=== PATIENT | male | born 1975 | race Caucasian/White ===

== ENCOUNTER → 2016-06-16 | Outpatient (CLI) | payer BC ==
[2016-06-16 10:44] LABS: ALT/SGPT 201 U/L (12-78); AST/SGOT 74 U/L (15-37); BLOOD UREA NITROGEN 18 mg/dl (7-18); BUN/CREATININE RATIO 18.1 (10-20); CALCIUM 8.3 mg/dl (8.5-10.1); CARBON DIOXIDE 30 mmol/L (21-32); CHLORIDE 105 mmol/L (98-107); GLUCOSE 105 mg/dl (70-99); POTASSIUM 3.3 mmol/L (3.5-5.1); SODIUM 141 mmol/L (136-145)
[2016-06-16 10:46] LABS: ALKALINE PHOSPHATASE 70 U/L (45-117)
[2016-06-19 10:19] LABS: AFP TUMOR MARKER SERUM 1.7 NG/ML (<6.1)
== END | disposition home or self-care (01) ==
LOC: C.LAB 16:43
PROVIDERS: ATTEND Urology
DX: N50.819 Testicular pain, unspecified (principal); N50.9 Disorder of male genital organs, unspecified; D49.59 Neoplasm of unspecified behavior of other genitourinary organ; K65.1 Peritoneal abscess

== ENCOUNTER → 2016-06-23 | Outpatient (CLI) | payer BC ==
[~2016-06-23] MED LIST: OPTIRAY 320 IV PRN
--- NOTE | 2016-06-23 09:54 | DIAGNOSTIC IMAGING REPORT ---
CHEST 2 VIEWS ROUTINE CLINICAL HISTORY: N50.819 Testicular painN50.9 Testicular lumpD49.59 Testicular ne testicular nodule COMPARISON STUDY: 12/21/2015 FINDINGS: The bones soft tissues and hemidiaphragms are normal. The cardiomediastinal silhouette is normal. The lungs are clear. The pulmonary vasculature is normal. IMPRESSION: Negative chest. Electronically signed by: Cabrera Rey M.D. 06/23/2016 9:52 AM Dictated Date/Time: 06/23/2016 9:52 AM
--- NOTE | 2016-06-23 10:17 | DIAGNOSTIC IMAGING REPORT ---
CT OF THE ABDOMEN AND PELVIS WITH CONTRAST CLINICAL HISTORY: Testicular cancer. COMPARISON STUDY: CT of the abdomen and pelvis May 11, 2015. TECHNIQUE: Following IV administration of 100 mL of Optiray-320, axial images of the abdomen and pelvis were obtained from the lung bases to the proximal femurs. Images were reviewed in the axial, sagittal, and coronal planes. IV contrast was administered without complication. Oral contrast was administered. CT DOSE: 575.63 mGy.cm FINDINGS: Lung bases are clear. The liver, spleen, adrenal glands, kidneys and pancreas are normal. There is no hydronephrosis. No enlarged abdominal or pelvic lymph nodes are present. Postsurgical findings within the left groin with ill-defined soft tissue is noted. This favors scar. This is less prominent than on exam of May 11, 2015. No suspicious osseous lesions are present. A few small sclerotic lesions within the pelvis and hips are unchanged since initial exam and likely reflect bone islands. There are findings consistent with a left-sided orchiectomy. IMPRESSION: 1. No evidence of recurrent malignancy within the abdomen or pelvis. 2. Ill-defined left groin soft tissue which favors scar. Electronically signed by: Johnny Chawla M.D. 06/23/2016 10:14 AM Dictated Date/Time: 06/23/2016 10:04 AM
== END | disposition home or self-care (01) ==
LOC: C.CTS 09:34
PROVIDERS: ATTEND Urology
DX: D49.59 Neoplasm of unspecified behavior of other genitourinary organ (principal); K65.1 Peritoneal abscess; N50.819 Testicular pain, unspecified

== ENCOUNTER → 2016-07-06 | Outpatient (CLI) | payer BC | END | disposition home or self-care (01) | LOC: C.LABSPEC 17:21 | PROVIDERS: ATTEND Podiatrist Primary Podiatric Medicine | DX: B35.1 Tinea unguium (principal) ==

== ENCOUNTER → 2017-05-17 | Outpatient (CLI) | payer OTHER ==
[2017-05-17 14:57] LABS: ALT/SGPT 176 U/L (12-78); AST/SGOT 70 U/L (15-37); BLOOD UREA NITROGEN 18 mg/dl (7-18); CALCIUM 9.1 mg/dl (8.5-10.1); CARBON DIOXIDE 28 mmol/L (21-32); CREATININE 0.95 mg/dl (0.60-1.40); GLUCOSE 84 mg/dl (70-99); POTASSIUM 3.9 mmol/L (3.5-5.1); SODIUM 138 mmol/L (136-145)
[2017-05-17 14:59] LABS: ALKALINE PHOSPHATASE 74 U/L (45-117); TOTAL PROTEIN 8.3 gm/dl (6.4-8.2)
== END | disposition home or self-care (01) ==
LOC: C.LAB 12:53
PROVIDERS: ATTEND Urology
DX: N50.9 Disorder of male genital organs, unspecified (principal); C62.90 Malignant neoplasm of unspecified testis, unspecified whether descended or undescended

== ENCOUNTER → 2017-05-25 | Outpatient (CLI) | payer OTHER ==
--- NOTE | 2017-05-25 09:40 | DIAGNOSTIC IMAGING REPORT ---
CHEST 2 VIEWS ROUTINE HISTORY: C62.90 Testicular cancer COMPARISON: Chest 06/23/2016. FINDINGS: The lungs are clear. The heart is normal in size. No pleural effusions. No pneumothorax. No suspicious lytic or osseous lesions. Subtle compression deformities within the upper and lower thoracic spine remain unchanged. Therefore, these are considered to be old. IMPRESSION: No significant change compared to the prior study. No acute process. Electronically signed by: Emiliano Lam M.D. 05/25/2017 9:39 AM Dictated Date/Time: 05/25/2017 9:31 AM
[2017-05-25 10:12] LABS: BLOOD UREA NITROGEN 17 mg/dl (7-18); CREATININE 1.11 mg/dl (0.60-1.40)
== END | disposition home or self-care (01) ==
LOC: C.RAD 08:28
PROVIDERS: ATTEND Urology
DX: C62.90 Malignant neoplasm of unspecified testis, unspecified whether descended or undescended (principal)

== ENCOUNTER → 2017-05-29 | Outpatient (CLI) | payer OTHER ==
--- NOTE | 2017-05-29 14:50 | DIAGNOSTIC IMAGING REPORT ---
CT SCAN OF THE ABDOMEN AND PELVIS WITH IV CONTRAST CLINICAL HISTORY: Testicular cancer. COMPARISON STUDY: Abdominal CT dated 06/23/2016. TECHNIQUE: Following the IV administration of 94 cc of Optiray 320, CT scan of the abdomen and pelvis is performed from the lung bases to the proximal femora. Images are reviewed in the axial, sagittal, and coronal planes. IV contrast was administered without complication. A dose lowering technique was utilized adhering to the principles of ALARA. CT DOSE: 681.01 mGy.cm FINDINGS: Lung bases: The heart is normal in size and without pericardial effusion. The lung bases are clear. Liver: The contrast-enhanced liver is normal in size, contour, and attenuation. There is no intrahepatic biliary ductal dilatation. The hepatic veins and portal veins are patent. Gallbladder: Unremarkable. Spleen: Normal in size and attenuation. Pancreas: Unremarkable. Adrenal glands: Unremarkable. Kidneys: The contrast enhanced kidneys are normal in size and without hydronephrosis. The kidneys enhance symmetrically. Abdominal vasculature: The abdominal aorta is normal in course and caliber. Bowel: Moderate colonic fecal retention is noted. No bowel obstruction is identified. The appendix is well-visualized and normal. Peritoneum: There is no intraperitoneal free air or abdominal ascites. There is a small fat-containing umbilical hernia. Lymphadenopathy: There is an enlarging ovoid water attenuation structure the left periaortic space seen on image #161. This measures 2.2 x 2.0 cm. Subcentimeter retroperitoneal and iliac chain lymph nodes are identified. Pelvic viscera: The bladder, prostate, and seminal vesicles are normal as visualized. Findings are consistent with previous left inguinal herniorrhaphy. Irregular soft tissue in the left groin on image #407 measures 1.6 x 4.3 cm. This is similar in appearance to previous and favors scar tissue. Skeletal structures: No lytic or blastic lesions are seen. IMPRESSION: 1. There is an enlarging ovoid water attenuation retroperitoneal structures are in the periaortic region. This is pathologically indeterminant, but concerning as it has increased in size from prior examination. Differential considerations include a necrotic lymph node or possibly a lymphatic malformation/lymphocele. Continued attention at follow-up is recommended. 2. No additional findings are concerning for metastatic disease in the abdomen or pelvis. 3. Irregular soft tissue in the left groin is similar to previous and the appearance favors scar tissue. 4. Moderate colonic fecal retention. Electronically signed by: Jabari Elise M.D. 05/29/2017 2:49 PM Dictated Date/Time: 05/29/2017 2:34 PM
== END | disposition home or self-care (01) ==
LOC: C.CTS 14:09
PROVIDERS: ATTEND Urology
DX: C62.90 Malignant neoplasm of unspecified testis, unspecified whether descended or undescended (principal)

== ENCOUNTER → 2017-10-08 | Outpatient (CLI) | payer OTHER ==
[~2017-10-08] MED LIST changes: +GADAVIST IV PRN; -OPTIRAY 320 IV PRN
--- NOTE | 2017-10-09 07:01 | DIAGNOSTIC IMAGING REPORT ---
MRI OF THE ABDOMEN WITH AND WITHOUT CONTRAST CLINICAL HISTORY: Testicular neoplasm. COMPARISON STUDY: CT of the abdomen and pelvis May 29, 2017. TECHNIQUE: Utilizing a 1.5 Cece magnet and dedicated coil, multiplanar, multiecho imaging of the abdomen was performed pre and postcontrast administration. Injection of 9.5 cc of Gadavist IV was uneventful. FINDINGS: No hepatic lesions are present. The spleen, adrenal glands, kidneys and pancreas are normal. There is no biliary or pancreatic ductal dilatation. There is no abdominal ascites. Caliber and wall thickness of visualized small and large bowel are normal. The MRI of the pelvis will be reported separately. Note is made of a 2.6 x 1.9 x 1.6 cm T2 hyperintense left para-aortic lesion located inferior to the left renal vein which corresponds to the finding shown on CT of the abdomen and pelvis. This has a few foci of inherent T1 hyperintensity without definitive enhancement on the postcontrast images. This is either stable or slightly decreased in size since prior CT. No additional retroperitoneal abnormalities are present. IMPRESSION: 2.6 x 1.9 x 1.6 cm T2 hyperintense nonenhancing left paraaortic focus either unchanged or minimally decreased since CT of May 29, 2017. This is nonspecific and a pathologic necrotic lymph node or treated lymph node remain within the differential. A lymphocele/seroma could appear similar if previous retroperitoneal lymph node dissection. A follow-up MRI in 6 months to ensure stability is recommended. Otherwise, normal MRI of the abdomen. Electronically signed by: Johnny Chawla M.D. 10/09/2017 7:00 AM Dictated Date/Time: 10/08/2017 9:45 AM
--- NOTE | 2017-10-09 15:39 | DIAGNOSTIC IMAGING REPORT ---
PELVIC COMBO HISTORY: 41 years-old Male TESTICULAR CA, CHECK-UP. Follow-up study in a patient with history of testicular carcinoma. Subsequent treatment strategy. COMPARISON: MRI of the abdomen and same day, CT abdomen and pelvis 05/29/2017 TECHNIQUE: Multiplanar multisequence MRI of the pelvis was obtained both with and without the use of 9.5 mL Gadavist FINDINGS: There is redemonstration of a T2 hyperintense ovoid circumscribed nonenhancing lesion within the retroperitoneum left periaortic tissues at the level of the kidneys measuring 2.6 x 1.9 x 1.6 cm, previously measuring 2.2 x 2.0 x [address] study from 05/29/2017. This is better seen and characterized on the MR abdomen of same day. There are a few scattered nonenlarged iliac and inguinal chain lymph nodes present. No pathologically enlarged lymph nodes about the pelvis. The iliac vessels appear patent and within normal limits. Probable scar formation about the left inguinal tissues redemonstrated. The bowel and abdominal structures appear to be within normal limits. The musculature and soft tissues are otherwise within normal limits. Bladder, prostate and seminal vesicles are within normal limits. Rectum and sigmoid colon are unremarkable. No ascites. Bones appear to be unremarkable. IMPRESSION: 1. Ovoid circumscribed T2 hyperintense left periaortic lesion redemonstrated measuring up to 2.6 cm which appears unchanged to slightly decreased in size from comparison study. Please see MRI abdomen of same day for further details. 2. No suspicious lesions identified in the pelvis. 3. Probable scar formation about the left inguinal tissues appears unchanged. The above report was generated using voice recognition software. It may contain grammatical, syntax or spelling errors. Electronically signed by: sIhan Alvarez M.D. 10/09/2017 3:38 PM Dictated Date/Time: 10/08/2017 9:45 AM
== END | disposition home or self-care (01) ==
LOC: C.MRI 07:40
PROVIDERS: ATTEND Urology
DX: D49.59 Neoplasm of unspecified behavior of other genitourinary organ (principal)